=== PATIENT | male | born 1965 | race Caucasian/White ===

== ENCOUNTER 2024-01-25 15:14 | Emergency (ER) | payer OTHER, SELFPAY ==
[2024-01-25 15:16] VITALS: BP 139/82
--- NOTE | 2024-01-25 16:15 | ED.SKININJ ---
HPI-Injury
General
Chief Complaint: Skin Problem
Source: patient
Exam Limitations: none
Time Seen by Provider: 01/25/24 15:47
Travel History
Have you had any contact with someone who has COVID-19?: No
Do you have any symptoms of coronavirus? Fever > 100 degrees, chills, cough, shortness of breath, sore throat, loss of taste or smell, muscle aches, or headache?: No
History of Present Illness-Injury
Is pt an associate of [facility]?: No
Initial Injury comments:
Patient to ED with complaint of redness and swelling to left side of chin. Small area of scabbing noted. Denies fever/chills. COncerned for infection. Brought t ED by for eval. Symptoms started this past week.
Past History
Past History
ED Past Medical History: Asthma, Psychiatric and Other
ED Past Surgical History: Other (Previous abscess drainage.)
Social History
Personal: Single
Living: with family
Review of Systems
Review of Systems
Allergies reviewed?: Yes
All Other Systems: ROS reviewed and negative except as documented in HPI and ROS
Constitutional: Reports no symptoms
EENT: Reports no symptoms
Respiratory: Reports no symptoms
Cardiac: Reports no symptoms
ABD/GI: Reports no symptoms
Musculoskeletal: Reports no symptoms
Skin: Reports other (redness and swelling to left chin)
Neurological: Reports no symptoms
Psychiatric: Reports no symptoms
Phy Exam
General Physical Exam
General Presentation: well appearing and no apparent distress
General age: appears stated age
General Skin: warm and dry
General Habitus: normal
General Mental: alert
General Hydration: appears well hydrated
Musculoskeletal Exam
Musculoskeletal Exam: neuro vasc intact
Skin Exam
Skin Exam: warm/dry and other (erythema mild swelling to left ant chin. Small scab noted at center of erythema. No drainage. No fluctuance)
Psychiatric Exam
Psychiatric Exam: normal mood/affect
Course
Orders/Labs/Results
Orders:
Orders
01/25/24 16:12
Sulfamethox./Trimethoprim Ds [Bactrim Ds 800 mg/160 mg] 1 tablet PO NOW STA
Vital Signs
Initial and Last Documented VS:
Initial Vital Signs
Temp Pulse Resp BP Pulse Ox
98.2 F 65 17 139/82 99
01/25/24 15:16 01/25/24 15:16 01/25/24 15:16 01/25/24 15:16 01/25/24 15:16
Last Documented Vital Signs
Temp Pulse Resp BP Pulse Ox
98.2 F 68 17 139/82 98
01/25/24 15:16 01/25/24 16:34 01/25/24 15:16 01/25/24 15:16 01/25/24 16:34
*Critical Care Note
Total Time (30-74mins, 75-104mins- exclusive of procedures): Not Applicable
ED Attending Note
-
Portions of this chart may have been created with voice recognition software.� Occasional wrong word or��sound alike� substitutions may have occurred due to the inherent limitations of voice recognition software.
Discharge Plan
Departure
Patient Disposition: Home (Routine Discharge)
Date of Disposition: 01/25/24
Time of Disposition: 16:13
Patient with high blood pressure during this ER visit?: No
Condition: Good
Covid-19: Not Applicable
Discharge Problem:
Cellulitis of chin
Instructions: Cellulitis (Skin Infection), Adult (DC)
Prescriptions:
New
sulfamethoxazole-trimethoprim [Bactrim DS] 800-160 mg tablet
1 tab PO BID Qty: 20 0RF
No Action
clindamycin HCl 300 mg capsule
300 mg PO QID 10 Days Qty: 28 0RF
Referrals:
Valeri Riley MD [Family Provider] - Follow up in 2-3 days
Interventions
Interventions:
*Risk Screen - Suicide Last Done: 01/25/24 16:13
*General Assessment Last Done: 01/25/24 16:13
*Neglect/Abuse Screening Last Done: 01/25/24 16:13
*Nursing Disposition Last Done: 01/25/24 16:34
ED-Skin Assessment Last Done: 01/25/24 16:34
[2024-01-25] MEDS: BACTRIM DS 800 MG/160 MG 1 TABLET PO (16:25)
== END 2024-01-25 16:46 | disposition home or self-care (01) ==
LOC: EMR 15:14
PROVIDERS: EMERGENCY PHYSICIAN Emergency Medicine; FAMILY PHYSICIAN Family Medicine
DX: L03.211 Cellulitis of face (principal); J45.909 Unspecified asthma, uncomplicated
CPT/HCPCS: 99282